=== PATIENT | female | born 2005 | race Two or more races ===

== ENCOUNTER 2025-03-28 11:29 | Emergency (ER) | payer MEDICAID, SELFPAY ==
[2025-03-28 11:55] VITALS: BP 120/79; PULSE 84; RESP 16; TEMP 36.7; O2SAT 98
--- NOTE | 2025-03-28 12:01 | XR_ITS ---
Examination: Complete OB ultrasound, less than 14 weeks, transabdominal Date and time of exam: March 28, 2025 1213 hrs. Indications: Pelvic cramping and vaginal bleeding beginning one hour ago Technique: Obstetrical ultrasound images less than 14 weeks performed via transabdominal imaging Findings: A normal shaped single intrauterine gestation is present in the uterus. pole 2.9 cm corresponds to 9 weeks 5 day gestational age Cardiac motion 173 BPM Ultrasonographic survey of visible and placental structures unremarkable. Amniotic fluid volume appears appropriate for this estimated gestational age. Right ovary 3.8 cm arterial flow Left ovary 3.7 cm arterial flow Impression: Viable intrauterine gestation 9 weeks 5 days No subchorionic hemorrhage.
--- NOTE | 2025-03-28 12:02 | PD.EDFMALE ---
ED Female Urogenital RME/HPI General Chief complaint: Urogenital-Female Stated complaint: VAG BLEEDING 13WK PREG Time Seen by Provider: 03/28/25 11:44 Arrival date/time: 03/28/25 11:29 Limitations: no limitations RME / HPI RME / HPI Narrative: 19-year-old female here with family concerning about spotting and cramping from vagina this morning. She is G1, P0 SAB 0. With an LMP of 01/15/2025. Does not have her first appointment with OB until 04/13/2025. Has not had blood work or ultrasound as of yet. Related Data Previous Rx's ?Medication ?Instructions ?Recorded amoxicillin 875 mg-potassium 1 tab PO BID Pneumonia #14 tabs 09/22/23 clavulanate 125 mg tablet Allergies Allergy/AdvReac Type Severity Reaction Status Date / Time No Known Allergies Allergy Verified 03/28/25 11:34 Review of Systems Review of Systems Systems Reviewed: All systems reviewed, normal except as documented Gastrointestinal Gastrointestinal: Reports as per HPI Genitourinary Genitourinary: Reports as per HPI Integumentary/Breasts Skin/Breast: Reports as per HPI ED Exam General Limitations: Present no limitations General appearance: Present alert and in no apparent distress Eye Eye exam: Present normal appearance, PERRL and EOMI Respiratory Respiratory exam: Present normal lung sounds bilaterally Cardiovascular Cardiovascular exam: Present regular rate, normal rhythm and normal heart sounds Abdominal Exam Abdominal exam: Present soft and normal bowel sounds External exam: Present other (Deferred exam) Extremities Exam Extremities exam: Present normal inspection and full ROM Back Exam Back exam: Present normal inspection and full ROM Psychiatric Psychiatric exam: Present normal affect and normal mood Skin Skin exam: Present warm, dry, intact and normal color Course Quality Measures none Orders Category Date Time Status US OB <= 14 weeks fetus Stat Exams 03/28/25 12:01 Completed ABO/RH Type - Stat Lab 03/28/25 12:10 Completed Beta HCG,Quantitative Stat Lab 03/28/25 12:10 Completed CBC [CBC] Stat Lab 03/28/25 12:10 Completed CMP [Comprehensive Metabolic Panel] Stat Lab 03/28/25 12:10 Completed UA [Urinalysis] Stat Lab 03/28/25 12:29 Completed Vital Signs Vital signs: Vital Signs Temperature 98.1 F 03/28/25 11:55 Pulse Rate 84 03/28/25 11:55 Respiratory Rate 16 03/28/25 11:55 Blood Pressure 120/79 03/28/25 11:55 Pulse Oximetry (%) 98 03/28/25 11:55 Oxygen Delivery Method Room Air 03/28/25 11:55 Urogenital - Female MDM Narrative MDM Narrative:: 29-year-old female evaluated for vaginal bleeding during . Workup did not show ectopic was diagnosed with threatened . Advise follow-up with PCP in 2 days for quant check Patient data External records reviewed:: [facility] previous records Clinical information provided by:: patient and family Social determinants that could affect healthcare access:: other (specify) Patient has the following chronic illnesses:: How is presenting disease/condition affected by chronic disease/condition?: caused by Evaluation data The following diagnostics were reviewed and interpreted by me:: lab results and radiology exam(s) Lab and/or radiology exams considered but not ordered:: All exams considered we will order Interpretation Summary: Ultrasound showed 9-week 5-day intrauterine with normal heart rate, blood type O+. No signs of anemia. Quant above 67,000 consistent with weeks. Medications / Prescriptions Medications or Prescriptions considered but not ordered:: All medications considered were ordered which were none Medication administrations:: No medications given today Consultations Consultation(s) initiated? (list below): No Diagnosis Urogenital Female Differential Diagnosis: urinary tract infection and other (Spontaneous , ectopic , subchorionic hemorrhage) Most likely diagnosis given after review of the tests above:: Threatened Admission Indicated Admission indicated?: not indicated Admission Request Was there a request for admission?: No Disposition Plan Disposition Plan: Discharge Discharge Attestation Discharge Attestation: The patient and all family members were given an opportunity to ask questions and understood the discharge instructions. Discharge instructions specifically effects, indications for sooner follow up or return to the emergency department, and the expected course of current diagnosis. Patient condition: Stable Discharge Plan Plan Patient Disposition: HOME (Self Care) Discharge Disposition comment: f.u in 2days with pcp Prescriptions/Referrals Prescriptions/Med Rec: No Action amoxicillin-pot clavulanate 875-125 mg tablet 1 tab PO BID Qty: 14 0RF Referrals: Mario Cavazos MD [Primary Care Provider] - In 1 week Problem List Clinical Impression: , spontaneous threatened Patient/Caregiver Discharge Instructions Education Materials: ED Possible Miscarriage ... 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
[2025-03-28 12:29] LABS: Basophils % (Auto) 0 % (0-2.5); Eosinophils # (Auto) 0.1 Thou/mm3 (0.0-0.5); Eosinophils % (Auto) 1 % (0-10); Hematocrit 34.9 % (36.0-46.0); Hemoglobin 12.3 g/dL (12.0-16.0); Immature Granulocytes % (Auto) 1 % (0-0); Immature Granulocytes Auto 0.11 Thou/mm3 (0.00-0.00); Lymphocytes # (Auto) 2.3 Thou/mm3 (1.0-4.8); Lymphocytes % (Auto) 23 % (10-50); Mean Corpuscular HGB Conc 35.2 g/dl (31.0-37.0); Mean Corpuscular Hemoglobin 27.7 pg (25.0-35.0); Mean Corpuscular Volume 79 fL (80-100); Monocytes # (Auto) 0.6 Thou/mm3 (0.0-0.8); Monocytes % (Auto) 6 % (0-12); Neutrophils # (Auto) 7.1 Thou/mm3 (1.8-7.7); Neutrophils % (Auto) 68 % (37-80); Nucleated Red Blood Cell % 0 /100 WBC (0); Platelet Count 291 Thou/mm3 (140-440); RDW Standard Deviation 38.6 fL (36.4-46.3); Red Blood Count 4.44 Miln/mm3 (4.00-5.20); White Blood Count 10.4 Thou/mm3 (4.5-11.0)
[2025-03-28 12:39] LABS: Collection Type, Urine Clean Catch
[2025-03-28 12:52] LABS: Alanine Aminotransferase 15 U/L (10-49); Albumin, Serum 4.2 gm/dL (3.5-5.0); Albumin/Globulin Ratio 1.7 (1.2-2.2); Alkaline Phosphatase 60 U/L (46-116); Anion Gap 9 (7-16); BUN/Creatinine Ratio 10 Ratio (12-20); Bilirubin,Total 0.3 mg/dL (0.3-1.2); Blood Urea Nitrogen 6 mg/dL (9-23); Carbon Dioxide 24.3 mMol/L (20.0-31.0); Chloride 106 mMol/L (98-107); Creatinine (Component) 0.6 mg/dL (0.6-1.3); Globulin 2.5 gm/dL (2.3-3.5); Glucose 91 mg/dL (74-106); Osmolality,Calculated 275 (275-295); Potassium 4.1 mMol/L (3.4-5.1); Sodium 139 mMol/L (136-145); Total Protein 6.7 gm/dL (5.7-8.2); eGFR > 60 See Note
[2025-03-28 13:12] LABS: Bilirubin,Urine Negative (Negative); Blood,Urine 3+ (Negative); Color,Urine Yellow (Lt Yel-Yel); Glucose, Urine Negative (Negative); Ketones,Urine Negative (Negative); Leukocyte Esterase,Urine Negative (Negative); Nitrite,Urine Negative (Negative); PH,Urine 6.5 (5.0-7.0); Protein,Urine 1+ (Neg - Trace); RBC,Urine 345 /hpf (0-3); Specific Gravity,Urine 1.034 (1.001-1.035); Squamous Epithelial Cell,Urine 28 /hpf (0-5); Urobilinogen,Urine Negative mg/dL (0.0-1.0); WBC,Urine 5 /hpf (0-5)
[2025-03-28 13:15] LABS: Clarity,Urine Cloudy (Clear/Hazy); Sperm,Urine Present
[2025-03-28 13:22] LABS: Beta HCG,Quantitative 67733 mIU/mL (<5.0)
== END 2025-03-28 14:52 | disposition home or self-care (01) ==
PROVIDERS: Physician Assistant; Emergency Provider Family Medicine; PCP Family Medicine
DX: O20.0 Threatened abortion (principal); Z3A.09 9 weeks gestation of pregnancy
CPT/HCPCS: 36415; 76801; 80053; 81001; 84702; 85025; 86900; 86901; 99284

== ENCOUNTER 2025-05-27 10:40 | Outpatient (AMB) | payer MEDICAID, SELFPAY ==
[2025-05-27 11:01] VITALS: BP 108/72; PULSE 92; RESP 17; TEMP 36.3; O2SAT 96; BMI 37.8
--- NOTE | 2025-05-27 11:01 | OBCLNT_ITS ---
Vital Signs 05/27/25 11:01 Height 1.65 m Height Method Stated Weight 103.136 kg Weight Measurement Method Standing Scale BMI 37.8 BP 108/72 Blood Pressure Source Automatic Cuff Blood Pressure Location Right Upper Arm Position Sitting Respiration 17 Pulse 92 Pulse Source Monitor Temp 97.3 F Temp Source Temporal Artery Scan Pulse Oximetry (%) 96 Oxygen Delivery Method Room Air Allergies/Home Meds Allergies & Medications Allergies No Known Allergies Allergy (Verified 05/27/25 11:02) Intake Visit Data Collection New Patient or Established: Established Patient (seen at [facility] within 3 years) Reason for Visit:: OBI Seen by Clinical Staff ONLY (RN/MA): No Dogman/Woman Required: No Do You Feel Safe at Home: Yes Authorities Contacted: N/A PCP or OBGYN visit in last 3 months: Yes Date of Last PCP or OBGYN visit: 03/28/25 Hx Now: Yes Are you currently on any form of Control: No Last menstrual period: 02/15/25 Pain Present Currently: No Pain Scale Used: Brown-Zendejas/Numerical Pain scale:: 0 Smoking Status Smoking Status: Never smoker Questionnaires Covid-19 Vaccine Questionnaire Has patient been vacinated for Covid-19 Have you been vacinated for Covid-19: No PHQ-9 PHQ-2 Over the last 2 weeks, how often have you been bothered by any of the following problems? 1. Little interest or pleasure in doing things: not at all 2. Feeling down, depressed, or hopeless: not at all Total score: 0 PHQ-9 3. Trouble falling or staying asleep, or sleeping too much: Not at all 4. Feeling tired or having little energy: Not at all 5. Poor appetite or overeating: Not at all 6. Feeling bad about yourself - or that you are a failure or have let yourself or your family down: Not at all 7. Trouble concentrating on things, such as reading the newspaper or watching television: Not at all 8. Moving or speaking so slowly that other people could have noticed? - Or the opposite - being so fidgety or restless that you have been moving around a lot m ore than usual: not at all 9. Thoughts that you would be better off or of hurting yourself in some way: Not at all Total score: 0 If you checked off any problems, how difficult have these problems made it for you to do your work, take care of things at home, or get along with other people?: not difficult at all Source: Developed by Drs. Maxim Adler, Merline Nair, Leobardo Garcia and colleagues, with an educational cheyenne from [employer]. Depression screen completed yes Social History Living Situation History Marital Status: Single Lives With: Family Housing: TRAILER Tobacco History Smoking Status: Never smoker Second Hand Smoke Exposure: No Alcohol History Alcohol Intake: Never Domestic Abuse History Do You Feel Safe at Home: Yes History of Present Illness HPI Narrative 20-year-old 1 para 0 for OBI. Patient's transfer from [facility]. Her last. Was unknown. She thinks it was early January. Patient had an ED visit for spotting in March. On March 28 patient was 9 weeks 5 and this gave EDC of October 26, 2023. Patient denies social habits. Denies surgery. Denies chronic illness. She reports slight movement. She states she had labs done at her visit at [facility]. Denies any leaking bleeding or contractions. 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 EDC 10/26/25 by 9-5wk sono. no pMH, no OB complaints. denies leaking,bleeding, UC. + FM NIPT,AFP, carrier screen today, mfm referral to Dr BURK. rtc 4 week obc Menstrual History Menstrual reliability: definite Flow: normal Menstrual regularity: regular Monthly: Yes Age at menarche: 19 On control pills at conception: No OB History : 1 Infection History & Risk Evaluation History of STDs: none HIV risk evaluation: low risk Hepatitis B risk evaluation: low risk Patient or partner has history of Genital Herpes: No Varicella/chicken pox status: unknown Genetic Screening & History Genetic Screening/Teratology Counseling - Includes patient, baby's father, or anyone in either family with: 1. Patient's age 35 years or older as of estimated date of delivery: No 2. Thalassemia (Luxembourger, Sinhala, Mediterranean, or Background); MCV less than 80: No 3. Neural Tube Defect (Meningomyelocele, Spina Bifida, or Anencephaly): No 4. Congenital Heart Defect: No 5. Down Syndrome: No 6. Jeffrey-Sachs (Ashkenazi Buddhism, Cajun, Cook Islander South Sudanese): No 7. Elias Disease (Ashkenazi Buddhism): No 8. Familial Dysautonomia (Ashkenazi Buddhism): No 9. Sickle Cell Disease or Trait (): No 10. Hemophilia or other blood disorders: No 11. Muscular Dystrophy: No 12. Cystic Fibrosis: No 13. [place]'s Chorea: No 14. Mental Retardation/Autism: No 15. Other inherited genetic or chromosomal disorder: No 16. Maternal Metabolic Disorder (EG,TYPE 1 Diabetes, PKU): No 17. Patient or baby's father had a child with defects not listed above: No 18. Recurrent loss or a stillbirth: No 19. Medications (including supplements, vitamins, herbs or otc drugs)/illicit/recreational drugs/alcohol since last menstrual period: No 20. Any other: No Infection History 1. Live with someone with TB or exposed to TB: No 2. Rash or viral illness since last menstrual period: No 3. Hepatitis B,C: No Other (see comments) Source: [employer] Review of Systems Review of Systems Systems Reviewed: All systems reviewed, normal except as documented Exam General Limitations: no limitations General Appearance: alert, in no apparent distress, comfortable, cooperative, healthy appearing, well developed and well groomed Head Head exam: atraumatic, normocephalic and normal inspection ENT ENT exam: Present normal exam, normal oropharynx and mucous membranes moist Resp Respiratory exam: Present normal lung sounds bilaterally Card Cardiovascular exam: Present regular rate, normal rhythm and normal heart sounds Abdominal Abdominal exam: Present soft and normal bowel sounds Psych Psychiatric exam: Present normal affect and normal mood Office Procedures OB Clinic LOC & Office Proc's Nursing/Assessment Patient Status: Established Patient OB Clinic Nursing Assessment: Medication Reconciliation, Update PMH in EMR and Vital Signs OB Clinic Coordination of Care: Complex Care and Chronic Disease 1-5, Consent,records obtained, informed consent, Education Simp Pt/Fam, Lab and Imaging orders, Results/Orders obtained and Staff clarify orders Special Needs: Heart tones Established Patient Charge Established Patient Point Assignment: 135 Established Patient Point Charge: EP Level 4 (120-155) Results Urine HCG Urine HCG Positive Last Edit by Darlene Glover MA on 05/27/25 11:2 6 Assessment & Plan Diagnosis / Problem List (1) Encounter for supervision of high risk in second trimester, antepartum: Status: Acute (2) Obesity affecting in second trimester: Status: Acute Qualifiers: Obesity type affecting : severe obesity due to excess calories Qualified Code(s): O99.212 - Obesity complicating , second trimester; E66.01 - Morbid (severe) obesity due to excess calories Plan Schedule with Dr. Burk for maternal- medicine sono. Discussed diet and weight gain. Continue prenatals. NIPT AFP and carrier screen drawn today. Increase fluids. Increase activity. Return in 4 weeks OB check Additional Plan Follow Up: 4 Weeks (obc)
== END 2025-05-27 11:36 | disposition home or self-care (01) ==
LOC: HODSOBC 10:40
PROVIDERS: Supervising Provider Advanced Practice Midwife; Visit Provider Advanced Practice Midwife
DX: O09.892 Supervision of other high risk pregnancies, second trimester (principal); O99.212 Obesity complicating pregnancy, second trimester; Z3A.18 18 weeks gestation of pregnancy
CPT/HCPCS: 99214; G0463

== ENCOUNTER 2025-07-01 09:01 | Outpatient (AMB) | payer MEDICAID, SELFPAY ==
[2025-07-01 09:08] VITALS: BP 123/76; PULSE 91; RESP 16; TEMP 36.2; O2SAT 98; BMI 39.2
--- NOTE | 2025-07-01 09:08 | OBCLNT_ITS ---
Vital Signs 07/01/25 09:08 Height 1.65 m Height Method Stated Weight 106.651 kg Weight Measurement Method Standing Scale BMI 39.2 BP 123/76 Blood Pressure Source Automatic Cuff Blood Pressure Location Left Upper Arm Position Sitting Respiration 16 Pulse 91 Pulse Source Monitor Temp 97.2 F Temp Source Oral Pulse Oximetry (%) 98 Oxygen Delivery Method Room Air Allergies/Home Meds Allergies & Medications Allergies No Known Allergies Allergy (Verified 07/01/25 09:10) Medication Reconciliation No Known Home Medications 07/01/25 [History Confirmed 07/01/25] Intake Visit Data Collection New Patient or Established: Established Patient (seen at [facility] within 3 years) Reason for Visit:: OBC Seen by Clinical Staff ONLY (RN/MA): No Bevel Operator Required: No Do You Feel Safe at Home: Yes Authorities Contacted: N/A PCP or OBGYN visit in last 3 months: Yes Date of Last PCP or OBGYN visit: 05/27/25 Hx Now: Yes Are you currently on any form of Control: No Pain Present Currently: No Pain Scale Used: Brown-Zendejas/Numerical Pain scale:: 0 Smoking Status Smoking Status: Never smoker Questionnaires Covid-19 Vaccine Questionnaire Has patient been vacinated for Covid-19 Have you been vacinated for Covid-19: Yes PHQ-9 PHQ-2 Over the last 2 weeks, how often have you been bothered by any of the following problems? 1. Little interest or pleasure in doing things: not at all 2. Feeling down, depressed, or hopeless: not at all Total score: 0 PHQ-9 3. Trouble falling or staying asleep, or sleeping too much: Not at all 4. Feeling tired or having little energy: Not at all 5. Poor appetite or overeating: Not at all 6. Feeling bad about yourself - or that you are a failure or have let yourself or your family down: Not at all 7. Trouble concentrating on things, such as reading the newspaper or watching television: Not at all 8. Moving or speaking so slowly that other people could have noticed? - Or the opposite - being so fidgety or restless that you have been moving around a lot more than usual: not at all 9. Thoughts that you would be better off or of hurting yourself in some way: Not at all Total score: 0 If you checked off any problems, how difficult have these problems made it for you to do your work, take care of things at home, or get along with other people?: not difficult at all Source: Developed by Drs. Maxim Adler, Merline Nair, Leobardo Garcia and colleagues, with an educational cheyenne from [employer]. 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 EDC 10/26/25 by 9-5wk mandie. no pMH, no OB complaints. denies leaking,bleeding, UC. + FM NIPT,AFP, carrier screen today, mfm referral to Dr BURK. rtc 4 week obc 07/01/25 -?-?-?-?-?-?-?-?-?-?-?-?- 23w 2d 106.651 kg 123/76 absent unknown 23 145 active MFM 07/12/25, 3rd tri lab. no PTL complaints. fetus active Keep appointment with Dr. Burk for July 12. Discussed labor precautions. Third trimester labs. Return in 4 weeks OB check PRAVEEN Calculator Estimated Delivery Date Method Current WG Current Estimate 10/26/25 Ultrasound #1 23w 2d Other Estimates 10/27/25 LMP (Uncertain) 23w 1d Notes Visit Date: 07/01/25 Last Updated by: Jennifer Capone CNM NIPT-/girl, SMA-,CF-. AFP+ Visit Date: 05/27/25 Last Updated by: Jennifer Capone CNM 20 yo . Poor dates. 1st sono: 03/28/25: 9w5. EDC: 10/26/25. O+,abs-, rpr;;nr, rub imm, HBSAG-, hiv-,HC-, O+,abs-, , /,UT-/UA- Office Procedures OB Clinic LOC & Office Proc's Nursing/Assessment Patient Status: Established Patient OB Clinic Nursing Assessment: Medication Reconciliation, Update PMH in EMR and Vital Signs OB Clinic Coordination of Care: Education Complex Pt/Fam, Consent,records obtained, informed consent, Lab and Imaging orders, Results/Orders obtained and Staff clarify orders Special Needs: Heart tones Established Patient Charge Established Patient Point Assignment: 115 Established Patient Point Charge: EP Level 3 (80-115) Assessment & Plan Diagnosis / Problem List (1) Obesity affecting in second trimester: Status: Acute Qualifiers: Obesity type affecting : severe obesity due to excess calories Qualified Code(s): O99.212 - Obesity complicating , second trimester; E66.01 - Morbid (severe) obesity due to excess calories (2) Encounter for supervision of high risk in second trimester, antepartum: Status: Acute Plan Third trimester labs. Keep appointment with Dr. Lewis July 12. Discussed labor precautions increase fluid I discussed weight and diet and return in 4 weeks OB check Additional Plan Follow Up: 4 Weeks (obc)
== END 2025-07-01 09:38 | disposition home or self-care (01) ==
LOC: HODSOBC 09:01
PROVIDERS: Supervising Provider Advanced Practice Midwife; Visit Provider Advanced Practice Midwife
DX: O09.892 Supervision of other high risk pregnancies, second trimester (principal); O99.212 Obesity complicating pregnancy, second trimester; Z3A.23 23 weeks gestation of pregnancy
CPT/HCPCS: 99213; G0463

== ENCOUNTER 2025-07-25 10:17 | Observation (INO) | payer MEDICAID, SELFPAY ==
[2025-07-25 10:36] VITALS: BP 123/76; PULSE 89; RESP 20; RESP 98; TEMP 36.7; O2SAT 98; BMI 44.4
--- NOTE | 2025-07-25 10:58 | XR_ITS ---
Examination: Complete OB ultrasound greater than 14 weeks Date and time of exam: July 25, 2025, 1125 hrs. Indications: Vaginal bleeding beginning 2:00 AM today Findings: Viable intrauterine single fetus with single amniotic sac presentation breech Cardiac motion 143 BPM. Placenta anterior grade 2. Umbilical cord insertion seen. Amniotic fluid index 12.2 cm. spine anterior. Cervix 3.2 cm. Ovaries obscured by bowel gas.. Composite estimated gestational age based on BPD, head circumference, abdominal circumference, femur length is 27 weeks 0 days. Estimated weight 964.9 g. Survey of intracranial anatomy, spinal anatomy, abdominal anatomy, four-chamber heart performed with no abnormalities identified. Impression: Viable intrauterine gestation breech presentation Placenta anterior grade 2 no abruption.
== END 2025-07-25 12:15 | disposition home or self-care (01) ==
LOC: SERX 10:37 → S4SX 10:38
PROVIDERS: Admitting Provider Obstetrics & Gynecology; Emergency Provider Emergency Medicine; Visit Provider Obstetrics & Gynecology
DX: O46.92 Antepartum hemorrhage, unspecified, second trimester (principal); O32.1XX0 Maternal care for breech presentation, not applicable or unspecified; Z3A.27 27 weeks gestation of pregnancy
CPT/HCPCS: 59025; 59899; 76805; 99284

== ENCOUNTER 2025-07-30 09:30 | Outpatient (AMB) | payer MEDICAID, SELFPAY ==
--- NOTE | 2025-07-30 09:41 | AMB.OBVISIT ---
Vital Signs 07/30/25 09:42 Height 1.65 m Height Method Stated Weight 108.465 kg Weight Measurement Method Standing Scale BMI 39.8 BP 109/74 Blood Pressure Source Automatic Cuff Blood Pressure Location Left Upper Arm Position Sitting Respiration 18 Pulse 88 Pulse Source Monitor Temp 98.2 F Temp Source Oral Pulse Oximetry (%) 98 Oxygen Delivery Method Room Air Allergies/Home Meds Allergies & Medications Allergies No Known Allergies Allergy (Verified 07/30/25 09:45) Medication Reconciliation vitamins no.45-iron-FA 28 mg iron-1 mg chewable tablet 1 tab PO QDAY 07/25/25 [History Confirmed 07/30/25] clotrimazole 2 % vaginal cream (Gyne-Lotrimin) 1 appful vaginal QHS 3 days #21 grams 07/30/25 [Rx] ferrous sulfate 325 mg (65 mg iron) tablet 325 mg PO BID #60 tabs 07/30/25 [Rx] Intake Visit Data Collection New Patient or Established: Established Patient (seen at [facility] within 3 years) Reason for Visit:: CARE Seen by Clinical Staff ONLY (RN/MA): No Do You Feel Safe at Home: Yes Authorities Contacted: N/A PCP or OBGYN visit in last 3 months: Yes Hx Now: Yes Are you currently on any form of Control: No Pain Present Currently: No Pain Scale Used: Brown-Zendejas/Numerical Pain scale:: 0 Smoking Status Smoking Status: Never smoker Questionnaires Covid-19 Vaccine Questionnaire Has patient been vacinated for Covid-19 Have you been vacinated for Covid-19: No PHQ-9 PHQ-2 Over the last 2 weeks, how often have you been bothered by any of the following problems? 1. Little interest or pleasure in doing things: not at all 2. Feeling down, depressed, or hopeless: not at all Total score: 0 PHQ-9 3. Trouble falling or staying asleep, or sleeping too much: Not at all 4. Feeling tired or having little energy: Not at all 5. Poor appetite or overeating: Not at all 6. Feeling bad about yourself - or that you are a failure or have let yourself or your family down: Not at all 7. Trouble concentrating on things, such as reading the newspaper or watching television: Not at all 8. Moving or speaking so slowly that other people could have noticed? - Or the opposite - being so fidgety or restless that you have been moving around a lot more than usual: not at all 9. Thoughts that you would be better off or of hurting yourself in some way: Not at all Total score: 0 Source: Developed by Drs. Maxim Adler, Merline Nair, Leobardo Garcia and colleagues, with an educational cheyenne from [employer]. 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 EDC 10/26/25 by 9-5wk mandie. no pMH, no OB complaints. denies leaking,bleeding, UC. + FM NIPT,AFP, carrier screen today, mfm referral to Dr BURK. rtc 4 week obc 07/01/25 <del>?</del> 23w 2d 106.651 kg 123/76 absent unknown 23 145 active MFM 07/12/25, 3rd tri lab. no PTL complaints. fetus active Keep appointment with Dr. Burk for July 12. Discussed labor precautions. Third trimester labs. Return in 4 weeks OB check 07/30/25 <del>?</del> 27w 3d 108.465 kg 109/74 absent unknown 27 145 active Resolving URI. Patient here for ER follow-up. She is concerned because she had some bleeding 2 days ago. And she felt that she did not get the follow-up she should have had for that. No bleeding now. I did a spec exam cervix long closed. There is moderate amount of yeast in the vagina. No active bleeding. A1c was 148. New swab today. 3-hour GTT. Urine culture. NuSwab plus. FIELD TRAFFIC INVESTIGATOR Lotrimin x 7. Discussed comfort measures for vaginitis. No sex while using the cream. Discussed labor precautions. And danger signs symptoms. Follow-up on appointment with Dr. Burk. Return in 3 weeks OB check 3-hour GTT. Urine culture. NuSwab plus. FIELD TRAFFIC INVESTIGATOR Lotrimin x 7. Discussed comfort measures for vaginitis. No sex while using the cream. Discussed labor precautions. And danger signs symptoms. Follow-up on appointment with Dr. Burk. Return in 3 weeks OB check, iron 325 bid PRAVEEN Calculator Estimated Delivery Date Method Current WG Current Estimate 10/26/25 Ultrasound #1 27w 3d Other Estimates 10/27/25 LMP (Uncertain) 27w 2d Notes Visit Date: 07/30/25 Last Updated by: Jennifer Capone CNM 07/30: , rpr;;nr, 1 hr gtt: 148 Visit Date: 07/01/25 Last Updated by: Jennifer Capone CNM NIPT-/girl, SMA-,CF-. AFP+ Visit Date: 05/27/25 Last Updated by: Jennifer Capone CNM 20 yo . Poor dates. sono: 03/28/25: 9w5. EDC: 10/26/25. O+,abs-, rpr;;nr, rub imm, HBSAG-, hiv-,HC-, O+,abs-, , /,UT-/UA- Office Procedures OBC Clinic LOC & Office Proc's Nursing/Assessment Patient Status: Established Patient OB Clinic Nursing Assessment: Medication Reconciliation, Update PMH in EMR and Vital Signs OB Clinic Coordination of Care: Complex Care and Chronic Disease 1-5, Consent,records obtained, informed consent, Education Simp Pt/Fam, 1 Ins Authorization, Lab and Imaging orders, Results/Orders obtained and Staff clarify orders Special Needs: Heart tones Established Patient Charge Established Patient Point Assignment: 150 Established Patient Point Charge: EP Level 4 (120-155) Assessment & Plan Diagnosis / Problem List (1) Obesity affecting in second trimester: Status: Acute Qualifiers: Obesity type affecting : severe obesity due to excess calories Qualified Code(s): O99.212 - Obesity complicating , second trimester; E66.01 - Morbid (severe) obesity due to excess calories (2) Encounter for supervision of high risk in second trimester, antepartum: Status: Acute Plan NuSwab plus for complaints of vaginitis. Gyne-Lotrimin x 7. Ferrous sulfate 325 twice daily. Increase fluids. Increase iron foods. Follow-up with Dr. Burk for anatomy scan. Urine culture and 3-hour GTT today open return in 3 weeks OB check Additional Plan Follow Up: 3 Weeks (obc)
[2025-07-30 09:42] VITALS: BP 109/74; PULSE 88; RESP 18; TEMP 36.8; O2SAT 98; BMI 39.8
== END 2025-07-30 10:15 | disposition home or self-care (01) ==
LOC: HODSOBC 09:30
PROVIDERS: Supervising Provider Advanced Practice Midwife; Visit Provider Advanced Practice Midwife
DX: O09.892 Supervision of other high risk pregnancies, second trimester (principal); O99.212 Obesity complicating pregnancy, second trimester; O23.592 Infection of other part of genital tract in pregnancy, second trimester; N76.0 Acute vaginitis; Z3A.27 27 weeks gestation of pregnancy
CPT/HCPCS: 99214; G0463

== ENCOUNTER 2025-08-24 13:56 | Outpatient (AMB) | payer MEDICAID, SELFPAY ==
[2025-08-24 14:02] VITALS: BP 116/73; PULSE 111; RESP 18; TEMP 36.3; O2SAT 96; BMI 40.4
--- NOTE | 2025-08-24 14:02 | AMB.OBVISIT ---
Vital Signs 08/24/25 14:02 Height 1.65 m Height Method Stated Weight 109.939 kg Weight Measurement Method Standing Scale BMI 40.4 BP 116/73 Blood Pressure Source Automatic Cuff Blood Pressure Location Right Upper Arm Position Sitting Respiration 18 Pulse 111 H Pulse Source Monitor Temp 97.3 F Temp Source Temporal Artery Scan Pulse Oximetry (%) 96 Oxygen Delivery Method Room Air Allergies/Home Meds Allergies & Medications Allergies No Known Allergies Allergy (Verified 08/24/25 14:04) Medication Reconciliation vitamins no.45-iron-FA 28 mg iron-1 mg chewable tablet 1 tab PO QDAY 07/25/25 [History Confirmed 08/24/25] ferrous sulfate 325 mg (65 mg iron) tablet 325 mg PO BID #60 tabs 07/30/25 [Rx Confirmed 08/24/25] vitamin-ferrous fumarate 28 mg iron-folic acid 800 mcg tablet ( Vitamins with Minerals) 1 tab PO QDAY #60 tabs 08/17/25 [Rx Confirmed 08/24/25] metronidazole 500 mg tablet 500 mg PO BID 7 days #14 tabs 08/24/25 [Rx] Intake Visit Data Collection New Patient or Established: Established Patient (seen at [facility] within 3 years) Reason for Visit:: OBC Seen by Clinical Staff ONLY (RN/MA): No Information Management Manager Required: No Do You Feel Safe at Home: Yes Authorities Contacted: N/A PCP or OBGYN visit in last 3 months: Yes Date of Last PCP or OBGYN visit: 07/30/25 Hx Now: Yes Are you currently on any form of Control: No Pain Present Currently: No Pain Scale Used: Brown-Zendejas/Numerical Smoking Status Smoking Status: Never smoker Immunizations Flu Vaccine in the Last 12 Months: No Flu Vaccine Exclusion Criteria: No Exclusion Criteria Questionnaires Covid-19 Vaccine Questionnaire Has patient been vacinated for Covid-19 Have you been vacinated for Covid-19: No PHQ-9 PHQ-2 Over the last 2 weeks, how often have you been bothered by any of the following problems? 1. Little interest or pleasure in doing things: not at all 2. Feeling down, depressed, or hopeless: not at all Total score: 0 PHQ-9 3. Trouble falling or staying asleep, or sleeping too much: Not at all 4. Feeling tired or having little energy: Not at all 5. Poor appetite or overeating: Not at all 6. Feeling bad about yourself - or that you are a failure or have let yourself or your family down: Not at all 7. Trouble concentrating on things, such as reading the newspaper or watching television: Not at all 8. Moving or speaking so slowly that other people could have noticed? - Or the opposite - being so fidgety or restless that you have been moving around a lot more than usual: not at all 9. Thoughts that you would be better off or of hurting yourself in some way: Not at all Total score: 0 If you checked off any problems, how difficult have these problems made it for you to do your work, take care of things at home, or get along with other people?: not difficult at all Source: Developed by Drs. Maxim Adler, Merline Nair, Leobardo Garcia and colleagues, with an educational cheyenne from [employer]. 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 EDC 10/26/25 by 9-5wk mandie. no pMH, no OB complaints. denies leaking,bleeding, UC. + FM NIPT,AFP, carrier screen today, mfm referral to Dr BURK. rtc 4 week obc 07/01/25 <del>?</del> 23w 2d 106.651 kg 123/76 absent unknown 23 145 active MFM 07/12/25, 3rd tri lab. no PTL complaints. fetus active Keep appointment with Dr. Burk for July 12. Discussed labor precautions. Third trimester labs. Return in 4 weeks OB check 07/30/25 <del>?</del> 27w 3d 108.465 kg 109/74 absent unknown 27 145 active Resolving URI. Patient here for ER follow-up. She is concerned because she had some bleeding 2 days ago. And she felt that she did not get the follow-up she should have had for that. No bleeding now. I did a spec exam cervix long closed. There is moderate amount of yeast in the vagina. No active bleeding. A1c was 148. New swab today. 3-hour GTT. Urine culture. NuSwab plus. FAMILY CONSUMER SCIENCE TEACHER Lotrimin x 7. Discussed comfort measures for vaginitis. No sex while using the cream. Discussed labor precautions. And danger signs symptoms. Follow-up on appointment with Dr. Burk. Return in 3 weeks OB check 3-hour GTT. Urine culture. NuSwab plus. FAMILY CONSUMER SCIENCE TEACHER Lotrimin x 7. Discussed comfort measures for vaginitis. No sex while using the cream. Discussed labor precautions. And danger signs symptoms. Follow-up on appointment with Dr. Burk. Return in 3 weeks OB check, iron 325 bid 08/24/25 <del>?</del> 31w 0d 109.939 kg 116/73 absent unknown 30 145 active Completed Gyne-Lotrimin. Patient did not get Flagyl. 3-hour GTT was done today. Follow-up MFM in 4 weeks. Discussed labor precautions. Will reports good movement. Denies leaking, bleeding, contractions Offer Tdap next visit. Discussed labor precautions. Kick count twice a day. Follow-up with 3-hour results next visit. Discussed diet and weight. Flagyl 500 p.o. twice daily x 7 for positive PRAVEEN Calculator Estimated Delivery Date Method Current WG Current Estimate 10/26/25 Ultrasound #1 31w 0d Other Estimates 10/27/25 LMP (Uncertain) 30w 6d Notes Visit Date: 08/24/25 Last Updated by: Jennifer Capoen CNM sono: 08/23/25: spine intact, vertex, JEANCARLOS: 20, efw: 4-4/58%. 31w3, edc: 10/22/25 nuswab: + yeast/+BV Visit Date: 07/30/25 Last Updated by: Jennifer Capone CNM 07/30: , rpr;;nr, 1 hr gtt: 148 Visit Date: 07/01/25 Last Updated by: Jennifer Capone CNM NIPT-/girl, SMA-,CF-. AFP+ Visit Date: 05/27/25 Last Updated by: Jennifer Capone CNM 20 yo . Poor dates. sono: 03/28/25: 9w5. EDC: 10/26/25. O+,abs-, rpr;;nr, rub imm, HBSAG-, hiv-,HC-, O+,abs-, , ,UT-/UA- Office Procedures OBC Clinic LOC & Office Proc's Nursing/Assessment Patient Status: Established Patient OB Clinic Nursing Assessment: Medication Reconciliation, Update PMH in EMR and Vital Signs OB Clinic Coordination of Care: Complex Care and Chronic Disease 1-5, Education Complex Pt/Fam, Consent,records obtained, informed consent, Results/Orders obtained and Staff clarify orders Established Patient Charge Established Patient Point Assignment: 95 Established Patient Point Charge: EP Level 3 (80-115) Assessment & Plan Diagnosis / Problem List (1) Encounter for supervision of high risk in third trimester, antepartum: Status: Acute Plan Flagyl 500 twice daily x 7. The patient has a follow-up ultrasound in 4 weeks. Discussed labor precautions. Kick count twice a day. Discussed diet and sugary foods. Return in 2 weeks OB check Additional Plan Follow Up: 2 Weeks (obc)
== END 2025-08-24 14:16 | disposition home or self-care (01) ==
PROVIDERS: Supervising Provider Advanced Practice Midwife; Visit Provider Advanced Practice Midwife
DX: O09.93 Supervision of high risk pregnancy, unspecified, third trimester (principal); Z3A.31 31 weeks gestation of pregnancy
CPT/HCPCS: 99213; G0463

== ENCOUNTER 2025-09-10 11:23 | Outpatient (AMB) | payer MEDICAID, SELFPAY ==
--- NOTE | 2025-09-10 11:55 | OBCLNT_ITS ---
Vital Signs 09/10/25 11:56 Height 1.65 m Height Method Stated Weight 88.677 kg Weight Measurement Method Standing Scale BMI 32.5 BP 130/82 Blood Pressure Source Automatic Cuff Blood Pressure Location Left Upper Arm Position Sitting Respiration 18 Pulse 97 Pulse Source Monitor Temp 98.1 F Temp Source Oral Pulse Oximetry (%) 98 Oxygen Delivery Method Room Air Allergies/Home Meds Allergies & Medications Allergies No Known Allergies Allergy (Verified 09/10/25 11:56) Medication Reconciliation vitamins no.45-iron-FA 28 mg iron-1 mg chewable tablet 1 tab PO QDAY 07/25/25 [History Confirmed 09/10/25] ferrous sulfate 325 mg (65 mg iron) tablet 325 mg PO BID #60 tabs 07/30/25 [Rx Confirmed 09/10/25] vitamin-ferrous fumarate 28 mg iron-folic acid 800 mcg tablet ( Vitamins with Minerals) 1 tab PO QDAY #60 tabs 08/17/25 [Rx Confirmed 09/10/25] famotidine 40 mg tablet (Pepcid) 40 mg PO QDAY #20 tabs 09/10/25 [Rx] fluconazole 150 mg tablet 150 mg PO QDAY 3 days #3 tabs 09/10/25 [Rx] metronidazole 500 mg tablet 500 mg PO BID 7 days #14 tabs 09/10/25 [Rx] Immunizations Immunizations Flu Vaccine in the Last 12 Months: No Flu Vaccine Exclusion Criteria: Refused by Patient Care OB Visit Log OB Flowsheet Initial Weight: Not Recorded Date -?-?-?-?-?-?-?-?-?-?-?-?- EGA Weight BP Alb Glu CTX Pres Fundal ht FHR Mov Dilation Station Effacement Hx Notes Visit Note 05/27/25 -?-?-?-?-?-?-?-?-?-?-?-?- 18w 2d 103.136 kg 108/72 absent unknown 18 145 active 20 yo )BI. EDC 10/26/25 by 9-5wk mandie. no pMH, no OB complaints. denies leaking,bleeding, UC. + FM NIPT,AFP, carrier screen today, mfm referral to Dr BURK. rtc 4 week obc 07/01/25 -?-?-?-?-?-?-?-?-?-?-?-?- 23w 2d 106.651 kg 123/76 absent unknown 23 145 active MFM 07/12/25, 3rd tri lab. no PTL complaints. fetus active Keep appointment with Dr. Burk for July 12. Discussed labor precautions. Third trimester labs. Return in 4 weeks OB check 07/30/25 -?-?-?-?-?-?-?-?-?-?-?-?- 27w 3d 108.465 kg 109/74 absent unknown 27 145 active Resolving URI. Patient here for ER follow-up. She is concerned because she had some bleeding 2 days ago. And she felt that she did not get the follow-up she should have had for that. No bleeding now. I did a spec exam cervix long closed. There is moderate amount of yeast in the vagina. No active bleeding. A1c was 148. New swab today. 3-hour GTT. Uri ne culture. NuSwab plus. 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 Discussed comfort measures for vaginitis. No sex while using the cream. Discussed labor precautions. And danger signs symptoms. Follow-up on appointment with Dr. Burk. Return in 3 weeks OB check 3-hour GTT. Urine culture. NuSwab plus. 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 Discussed comfort measures for vaginitis. No sex while using the cream. Discussed labor precautions. And danger signs symptoms. Follow-up on appointment with Dr. Burk. Return in 3 weeks OB check, iron 325 bid 08/24/25 -?-?-?-?-?-?-?-?-?-?-?-?- 31w 0d 109.939 kg 116/73 absent unknown 30 145 active Completed Gyne- Lotrimin. Patient did not get Flagyl. 3-hour GTT was done today. Follow-up MFM in 4 weeks. Discussed labor precautions. Will reports good movement. Denies leaking, bleeding, contractions Offer Tdap next visit. Discussed labor precautions. Kick count twice a day. Follow-up with 3- hour results next visit. Discussed diet and weight. Flagyl 500 p.o. twice daily x 7 for positive 09/10/25 -?-?-?-?-?-?-?-?-?-?-?-?- 33w 3d 88.677 kg 130/82 occasional cephalic 33 145 active + 1 protein, heavy vag discharge white/green, + fm, no vb,UC or leaking. c/o numbness and pain R arm when sleeping,hurts. patient also c/o tailbone pain/back ache and severe heart burn New swab today . Discussed comfort measures for back pain and tailbone pain. Diflucan 150 p.o. daily x 3. And metronidazole 500 p.o. twice daily x 7 days for vaginitis. Discussed labor precautions. Kick count twice a day. Discussed comfort measures for indigestion. I started her on Pepcid 40 mg daily for the indigestion and also Tums. We discussed diet, small meals, moving more after eating, sitting up after eating. Discussed comfort measures for the numbness while sleeping and to use pillows for support. Decrease salt. Increase fluids. We discussed labor precautions and kick count. And return in 2 weeks for OB check. Discussed danger signs symptoms and ER precautions PRAVEEN Calculator Estimated Delivery Date Method Current WG Current Estimate 10/26/25 Ultrasound #1 33w 3d Other Estimates 10/27/25 LMP (Uncertain) 33w 2d Notes Visit Date: 09/10/25 Last Updated by: Jennifer Capone CNM 3 hr gtt: wnl Visit Date: 08/24/25 Last Updated by: Jennifer Capone CNM sono: 08/23/25: spine intact, vertex, JEANCARLOS: 20, efw: 4-4/58%. 31w3, edc: 10/22/25 nuswab: + yeast/+BV Visit Date: 07/30/25 Last Updated by: Jennifer Capone CNM 07/30: , rpr;;nr, 1 hr gtt: 148 Visit Date: 07/01/25 Last Updated by: Jennifer Capone CNM NIPT-/girl, SMA-,CF-. AFP+ Visit Date: 05/27/25 Last Updated by: Jennifer Capone CNM 20 yo . Poor dates. 1st sono: 03/28/25: 9w5. EDC: 10/26/25. O+,abs-, rpr;;nr, rub imm, HBSAG-, hiv-,HC-, O+,abs-, , /297,UT-/UA- Office Procedures OBC Clinic LOC & Office Proc's Nursing/Assessment Patient Status: Established Patient OB Clinic Nursing Assessment: Medication Reconciliation, Update PMH in EMR and Vital Signs OB Clinic Coordination of Care: Complex Care and Chronic Disease 1-5, Consent,records obtained, informed consent, Education Simp Pt/Fam, 1 Ins Authorization, Lab and Imaging orders, Results/Orders obtained and Staff clarify orders Special Needs: Heart tones Established Patient Charge Established Patient Point Assignment: 150 Established Patient Point Charge: EP Level 4 (120-155) Injection/Vaccine Admin SQ Im Injection: Yes Immunizations diphth,pertus(acell),tetanus 2.5 Lf unit-8 mcg-5 Lf/0.5mL IM syringe Performing Provider: Jennifer Capone CNM Performing Location: [facility] Administered by: Nara Kothari MA on 09/10/25 12:32 Dose Route Admin Location Dispensed Lot Number Expiration Date Pack age [facility] Sheet Layer 0.5 mL IM Right Deltoid 0.5 mL [id number] 01/15/28 [id number] [employer] VIS Given Date VIS Provided VIS Publication Date 09/10/25 Single Vaccine 24 Eligibility Eligibility Date Funding Source Public Non-[facility] Assessment & Plan Diagnosis / Problem List (1) Encounter for supervision of high risk in third trimester, antepartum: Status: Acute (2) Vaginitis: Status: Acute Qualifiers: Chronicity: acute Qualified Code(s): N76.0 - Acute vaginitis Plan Discussed labor precautions. Kick count twice a day. Discussed comfort measures for severe indigestion. Pepcid 40 mg p.o. daily. Along with Tums and increasing activity. We discussed diet weight loss. Discussed comfort measures for numbness in right arm and pain while sleeping. We discussed comfort measures for back pain and tailbone pain. NuSwab for vaginitis. Flagyl 500 p.o. twice daily x 7 and Diflucan 150 p.o. daily x 3. Patient has a follow-up ultrasound with Dr. Burk in September. Return in 2 weeks OB check NuSwab done Additional Plan Follow Up: 2 Weeks (obc)
[2025-09-10 11:56] VITALS: BP 130/82; PULSE 97; RESP 18; TEMP 36.7; O2SAT 98; BMI 32.5
== END 2025-09-10 12:30 | disposition home or self-care (01) ==
LOC: HODSOBC 11:23
PROVIDERS: Supervising Provider Advanced Practice Midwife; Visit Provider Advanced Practice Midwife
DX: O09.893 Supervision of other high risk pregnancies, third trimester (principal); O23.593 Infection of other part of genital tract in pregnancy, third trimester; N76.0 Acute vaginitis; O99.891 Other specified diseases and conditions complicating pregnancy; M54.50 Low back pain, unspecified; Z3A.33 33 weeks gestation of pregnancy; Z23 Encounter for immunization
CPT/HCPCS: 90471; 90715; 96372; 99214; G0463

== ENCOUNTER 2025-10-05 11:32 | Outpatient (AMB) | payer MEDICAID, SELFPAY ==
[2025-10-05 11:35] VITALS: BP 121/84; PULSE 91; RESP 18; TEMP 36.6; O2SAT 97; BMI 40.8
--- NOTE | 2025-10-05 11:35 | AMB.OBPNC ---
Vital Signs 10/05/25 11:35 Height 1.65 m Height Method Stated Weight 111.357 kg Weight Measurement Method Standing Scale BMI 40.8 BP 121/84 Blood Pressure Source Automatic Cuff Blood Pressure Location Left Upper Arm Position Sitting Respiration 18 Pulse 91 Pulse Source Monitor Temp 97.9 F Temp Source Oral Pulse Oximetry (%) 97 Oxygen Delivery Method Room Air Allergies/Home Meds Allergies & Medications Allergies No Known Allergies Allergy (Verified 10/05/25 11:39) Medication Reconciliation vitamins no.45-iron-FA 28 mg iron-1 mg chewable tablet 1 tab PO QDAY 07/25/25 [History Confirmed 10/05/25] ferrous sulfate 325 mg (65 mg iron) tablet 325 mg PO BID #60 tabs 07/30/25 [Rx Confirmed 10/05/25] vitamin-ferrous fumarate 28 mg iron-folic acid 800 mcg tablet ( Vitamins with Minerals) 1 tab PO QDAY #60 tabs 08/17/25 [Rx Confirmed 10/05/25] famotidine 40 mg tablet (Pepcid) 40 mg PO QDAY #20 tabs 09/10/25 [Rx Confirmed 10/05/25] Immunizations Immunizations Flu Vaccine in the Last 12 Months: No Flu Vaccine Exclusion Criteria: Refused by Patient Care OB Visit Log OB Flowsheet Initial Weight: Not Recorded Date <del>?</del> EGA Weight BP Alb Glu CTX Pres Fundal ht FHR Mov Dilation Station Effacement Hx Notes Visit Note 05/27/25 <del>?</del> 18w 2d 103.136 kg 108/72 absent unknown 18 145 active 20 yo )BI. EDC 10/26/25 by 9-5wk mandie. no pMH, no OB complaints. denies leaking,bleeding, UC. + FM NIPT,AFP, carrier screen today, mfm referral to Dr BURK. rtc 4 week obc 07/01/25 <del>?</del> 23w 2d 106.651 kg 123/76 absent unknown 23 145 active MFM 07/12/25, 3rd tri lab. no PTL complaints. fetus active Keep appointment with Dr. Burk for July 12. Discussed labor precautions. Third trimester labs. Return in 4 weeks OB check 07/30/25 <del>?</del> 27w 3d 108.465 kg 109/74 absent unknown 27 145 active Resolving URI. Patient here for ER follow-up. She is concerned because she had some bleeding 2 days ago. And she felt that she did not get the follow-up she should have had for that. No bleeding now. I did a spec exam cervix long closed. There is moderate amount of yeast in the vagina. No active bleeding. A1c was 148. New swab today. 3-hour GTT. Urine culture. NuSwab plus. 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 Discussed comfort measures for vaginitis. No sex while using the cream. Discussed labor precautions. And danger signs symptoms. Follow-up on appointment with Dr. Burk. Return in 3 weeks OB check 3-hour GTT. Urine culture. NuSwab plus. 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 Discussed comfort measures for vaginitis. No sex while using the cream. Discussed labor precautions. And danger signs symptoms. Follow-up on appointment with Dr. Burk. Return in 3 weeks OB check, iron 325 bid 08/24/25 <del>?</del> 31w 0d 109.939 kg 116/73 absent unknown 30 145 active Completed Gyne-Lotrimin. Patient did not get Flagyl. 3-hour GTT was done today. Follow-up MFM in 4 weeks. Discussed labor precautions. Will reports good movement. Denies leaking, bleeding, contractions Offer Tdap next visit. Discussed labor precautions. Kick count twice a day. Follow-up with 3-hour results next visit. Discussed diet and weight. Flagyl 500 p.o. twice daily x 7 for positive 09/10/25 <del>?</del> 33w 3d 88.677 kg 130/82 occasional cephalic 33 145 active + 1 protein, heavy vag discharge white/green, + fm, no vb,UC or leaking. c/o numbness and pain R arm when sleeping,hurts. patient also c/o tailbone pain/back ache and severe heart burn New swab today. Discussed comfort measures for back pain and tailbone pain. Diflucan 150 p.o. daily x 3. And metronidazole 500 p.o. twice daily x 7 days for vaginitis. Discussed labor precautions. Kick count twice a day. Discussed comfort measures for indigestion. I started her on Pepcid 40 mg daily for the indigestion and also Tums. We discussed diet, small meals, moving more after eating, sitting up after eating. Discussed comfort measures for the numbness while sleeping and to use pillows for support. Decrease salt. Increase fluids. We discussed labor precautions and kick count. And return in 2 weeks for OB check. Discussed danger signs symptoms and ER precautions 10/05/25 <del>?</del> 37w 0d 111.357 kg 121/84 occasional cephalic 36 140 active Vaginitis improved. Reports good movement. Denies leaking or bleeding. Fetus is active per patient GBS today. Discussed labor precautions and kick count twice a day. We discussed comfort measures and other things associated with viruses like feeding and [facility] PR[facility]EN Calculator Estimated Delivery Date Method Current WG Current Estimate 10/26/25 Ultrasound #1 37w 0d Other Estimates 10/27/25 LMP (Uncertain) 36w 6d Notes Visit Date: 10/05/25 Last Updated by: Jennifer Capone CNM nuab last visit: + yeast and BV/treated Visit Date: 09/10/25 Last Updated by: Jennifer Capone CNM 3 hr gtt: wnl Visit Date: 08/24/25 Last Updated by: Jennifer Capone CNM sono: 08/23/25: spine intact, vertex, JEANCARLOS: 20, efw: 4-4/58%. 31w3, edc: 10/22/25 nuswab: + yeast/+BV Visit Date: 07/30/25 Last Updated by: Jennifer Capone CNM 07/30: , rpr;;nr, 1 hr gtt: 148 Visit Date: 07/01/25 Last Updated by: Jennifer Capone CNM NIPT-/girl, SMA-,CF-. AFP+ Visit Date: 05/27/25 Last Updated by: Jennifer Capone CNM 20 yo . Poor dates. 1st sono: 03/28/25: 9w5. EDC: 10/26/25. O+,abs-, rpr;;nr, rub imm, HBSAG-, hiv-,HC-, O+,abs-, , ,UT-/UA- Office Procedures OBC Clinic LOC & Office Proc's Nursing/Assessment Patient Status: Established Patient OB Clinic Nursing Assessment: Medication Reconciliation, Update PMH in EMR and Vital Signs OB Clinic Coordination of Care: Complex Care and Chronic Disease 1-5, Consent,records obtained, informed consent, Education Simp Pt/Fam, 1 Ins Authorization, Lab and Imaging orders, Results/Orders obtained and Staff clarify orders Special Needs: Heart tones Miscellaneous Interventions: Culture Specimen Collection Established Patient Charge Established Patient Point Assignment: 165 Established Patient Point Charge: EP Level 5 (160-above) Assessment & Plan Diagnosis / Problem List (1) Encounter for supervision of high risk in third trimester, antepartum: Status: Acute Plan Discussed labor precautions. Kick count twice a day. GBS today. Discussed labor precautions and danger signs symptoms and ER precautions. Return in a week OB check Additional Plan Follow Up: 1 Week (obc)
== END 2025-10-05 11:52 | disposition home or self-care (01) ==
PROVIDERS: Supervising Provider Advanced Practice Midwife; Visit Provider Advanced Practice Midwife
DX: O09.93 Supervision of high risk pregnancy, unspecified, third trimester (principal); Z3A.37 37 weeks gestation of pregnancy; Z36.85 Encounter for antenatal screening for Streptococcus B; Z28.21 Immunization not carried out because of patient refusal
CPT/HCPCS: 99215; G0463

== ENCOUNTER 2025-10-19 09:38 | Outpatient (AMB) | payer MEDICAID, SELFPAY ==
[2025-10-19 10:04] VITALS: BP 125/83; PULSE 66; RESP 14; TEMP 36.8; O2SAT 98; BMI 41.3
--- NOTE | 2025-10-19 10:04 | OBCLNT_ITS ---
Vital Signs 10/19/25 10:04 Height 1.65 m Height Method Stated Weight 112.604 kg Weight Measurement Method Standing Scale BMI 41.3 BP 125/83 Blood Pressure Source Automatic Cuff Blood Pressure Location Left Upper Arm Position Sitting Respiration 14 Pulse 66 Pulse Source Monitor Temp 98.3 F Temp Source Oral Pulse Oximetry (%) 98 Oxygen Delivery Method Room Air Allergies/Home Meds Allergies & Medications Allergies No Known Allergies Allergy (Verified 10/19/25 10:04) Medication Reconciliation vitamins no.45-iron-FA 28 mg iron-1 mg chewable tablet 1 tab PO QDAY 07/25/25 [History Confirmed 10/19/25] ferrous sulfate 325 mg (65 mg iron) tablet 325 mg PO BID #60 tabs 07/30/25 [Rx Confirmed 10/19/25] vitamin-ferrous fumarate 28 mg iron-folic acid 800 mcg tablet ( Vitamins with Minerals) 1 tab PO QDAY #60 tabs 08/17/25 [Rx Confirmed 10/19/25] famotidine 40 mg tablet (Pepcid) 40 mg PO QDAY #20 tabs 09/10/25 [Rx Confirmed 10/19/25] Immunizations Immunizations Flu Vaccine in the Last 12 Months: No Flu Vaccine Exclusion Criteria: Refused by Patient Care OB Visit Log OB Flowsheet Initial Weight: Not Recorded Date -?-?-?-?-?-?-?-?-?-?-?-?- EGA Weight BP Alb Glu CTX Pres Fundal ht FHR Mov Dilation Station Effacement Hx Notes Visit Note 05/27/25 -?-?-?-?-?-?-?-?-?-?-?-?- 18w 2d 103.136 kg 108/72 absent unknown 18 145 active 20 yo )BI. EDC 10/26/25 by 9-5wk mandie. no pMH, no OB complaints. denies leaking,bleeding, UC. + FM NIPT,AFP, carrier screen today, mfm referral to Dr BURK. rtc 4 week obc 07/01/25 -?-?-?-?-?-?-?-?-?-?-?-?- 23w 2d 106.651 kg 123/76 absent unknown 23 145 active MFM 07/12/25, 3rd tri lab. no PTL complaints. fetus active Keep appointment with Dr. Burk for July 12. Discussed labor precautions. Third trimester labs. Return in 4 weeks OB check 07/30/25 -?-?-?-?-?-?-?-?-?-?-?-?- 27w 3d 108.465 kg 109/74 absent unknown 27 145 active Resolving URI. Patient here for ER follow-up. She is concerned because she had some bleeding 2 days ago. And she felt that she did not get the follow-up she should have had for that. No bleeding now. I did a spec exam cervix long closed. There is moderate amount of yeast in the vagina. No active bleeding. A1c was 148. New swab today. 3-hour GTT. Uri ne culture. NuSwab plus. 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 Discussed comfort measures for vaginitis. No sex while using the cream. Discussed labor precautions. And danger signs symptoms. Follow-up on appointment with Dr. Burk. Return in 3 weeks OB check 3-hour GTT. Urine culture. NuSwab plus. 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 Discussed comfort measures for vaginitis. No sex while using the cream. Discussed labor precautions. And danger signs symptoms. Follow-up on appointment with Dr. Burk. Return in 3 weeks OB check, iron 325 bid 08/24/25 -?-?-?-?-?-?-?-?-?-?-?-?- 31w 0d 109.939 kg 116/73 absent unknown 30 145 active Completed Gyne- Lotrimin. Patient did not get Flagyl. 3-hour GTT was done today. Follow-up MFM in 4 weeks. Discussed labor precautions. Will reports good movement. Denies leaking, bleeding, contractions Offer Tdap next visit. Discussed labor precautions. Kick count twice a day. Follow-up with 3- hour results next visit. Discussed diet and weight. Flagyl 500 p.o. twice daily x 7 for positive 09/10/25 -?-?-?-?-?-?-?-?-?-?-?-?- 33w 3d 88.677 kg 130/82 occasional cephalic 33 145 active + 1 protein, heavy vag discharge white/green, + fm, no vb,UC or leaking. c/o numbness and pain R arm when sleeping,hurts. patient also c/o tailbone pain/back ache and severe heart burn New swab today . Discussed comfort measures for back pain and tailbone pain. Diflucan 150 p.o. daily x 3. And metronidazole 500 p.o. twice daily x 7 days for vaginitis. Discussed labor precautions. Kick count twice a day. Discussed comfort measures for indigestion. I started her on Pepcid 40 mg daily for the indigestion and also Tums. We discussed diet, small meals, moving more after eating, sitting up after eating. Discussed comfort measures for the numbness while sleeping and to use pillows for support. Decrease salt. Increase fluids. We discussed labor precautions and kick count. And return in 2 weeks for OB check. Discussed danger signs symptoms and ER precautions 10/05/25 -?-?-?-?-?-?-?-?-?-?-?-?- 37w 0d 111.357 kg 121/84 occasional cephalic 36 140 active Vaginitis improved. Reports good movement. Denies leaking or bleeding. Fetus is active per patient GBS today. D iscussed labor precautions and kick count twice a day. We discussed comfort measures and other things associated with viruses like feeding and bottles return to [facility] check 10/19/25 -?-?-?-?-?-?-?-?-?-?-?-?- 39w 0d 112.604 kg 125/83 occasional cephalic 39 145 active 1.5 -4 50 Increased pressure and cramps. Denies leaking or bleeding. Reports good movement. EFW on ultrasound and Increased pressure and cramp s. Denies leaking or bleeding. Reports good movement. EFW on ultrasound 10/12: 83%, 8-7 Schedule induction of labor for October 25, 2025. And I discussed induction with patient. Kick count twice a day. Discussed comfort measures and increased ways to get contractions to start. Increase fluids. And return in a week if undelivered for OB check PRAVEEN Calculator Estimated Delivery Date Method Current WG Current Estimate 10/26/25 Ultrasound #1 39w 0d Other Estimates 10/27/25 LMP (Uncertain) 38w 6d 10/22/25 Ultrasound #2 39w 4d 10/26/25 Manual 39w 0d final praveen: efw: 83% Notes Visit Date: 10/19/25 Last Updated by: Jennifer Capone CNM GBS- Visit Date: 10/05/25 Last Updated by: Jennifer Capone CNM nuswab last visit: + yeast and BV/treated Visit Date: 09/10/25 Last Updated by: Jennifer Capone CNM 3 hr gtt: wnl Visit Date: 08/24/25 Last Updated by: Jennifer Capone CNM sono: 08/23/25: spine intact, vertex, JEANCARLOS: 20, efw: 4-4/58%. 31w3, edc: 10/22/25 nuswab: + yeast/+BV Visit Date: 07/30/25 Last Updated by: Jennifer Capone CNM 07/30: , rpr;;nr, 1 hr gtt: 148 Visit Date: 07/01/25 Last Updated by: Jennifer Capone CNM NIPT-/girl, SMA-,CF-. AFP+ Visit Date: 05/27/25 Last Updated by: Jennifer Capone CNM 20 yo . Poor dates. sono: 03/28/25: 9w5. EDC: 10/26/25. O+,abs-, rpr;;nr, rub imm, HBSAG-, hiv-,HC-, O+,abs-, , /,UT-/UA- Office Procedures OBC Clinic LOC & Office Proc's Nursing/Assessment Patient Status: Established Patient OB Clinic Nursing Assessment: Medication Reconciliation, Update PMH in EMR and Vital Signs OB Clinic Coordination of Care: Complex Care and Chronic Disease 1-5, Consent,records obtained, informed consent, Education Simp Pt/Fam, 1 Ins Authorization, Lab and Imaging orders, Results/Orders obtained and Staff clarify orders Special Needs: Heart tones Miscellaneous Interventions: Pelvic no cultures Established Patient Charge Established Patient Point Assignment: 160 Established Patient Point Charge: EP Level 5 (160-above) Assessment & Plan Diagnosis / Problem List (1) Encounter for supervision of high risk in third trimester, antepartum: Status: Acute Plan Schedule induction October 25, 2025. Discussed labor precautions and kick count twice a day. Increase activity and fluids. Discussed danger signs symptoms and ER precautions return a week OB check Additional Plan Follow Up: 1 Week (obc)
== END 2025-10-19 10:25 | disposition home or self-care (01) ==
LOC: HODSOBC 09:38
PROVIDERS: Supervising Provider Advanced Practice Midwife; Visit Provider Advanced Practice Midwife
DX: O09.93 Supervision of high risk pregnancy, unspecified, third trimester (principal); Z3A.39 39 weeks gestation of pregnancy; Z28.21 Immunization not carried out because of patient refusal
CPT/HCPCS: 99215; G0463